=== PATIENT | female | born 1990 | race Two or more races ===

== ENCOUNTER 2019-01-05 11:37 | Inpatient (IN) | payer OTHER ==
[~2019-01-05] VITALS: Ht 160 cm; Wt 65.9 kg
[~2019-01-05 11:37] MED LIST: IBUP-1222 PO; OXYC-302 PO; PREN1TAB60 PO
[2019-01-05] MEDS ORDERED: D5%-LACTATED RINGERS 1,000 ML IV SCH (22:58)
[2019-01-05] MEDS ORDERED: OXYTOCIN 30U/ 0.9% NaCL 500ML 500 ML IV ONE (22:58)
[2019-01-05] MEDS ORDERED: FENTANYL PF 100 MCG/2ML IVPush PRN (23:00)
[2019-01-05] MEDS ORDERED: METOCLOPRAMIDE 5 MG/ML, 2ML IVPush PRN (23:00)
[2019-01-05] MEDS ORDERED: SODIUM CITRATE/CITRIC ACID 15 ML UDC PO PRN (23:00)
[2019-01-05] MEDS ORDERED: MISOPROSTOL 25 MCG TABLET VG PRN (23:00)
[2019-01-05] MEDS ORDERED: TERBUTALINE 1 MG/ML, 1ML IVPush PRN ×2 (23:00)
[2019-01-05] MEDS ORDERED: TERBUTALINE 1 MG/ML, 1ML SQ PRN (23:00)
[2019-01-05] MEDS ORDERED: ONDANSETRON 2MG/ML, 2ML IVPush PRN (23:00)
[2019-01-05] MEDS ORDERED: CALCIUM CARBONATE 500 MG TAB.CHEW PO PRN (23:00)
[2019-01-05] MEDS ORDERED: ALUMINUM/MAG/SIMETHICONE 30 ML UDC PO PRN (23:00)
[2019-01-05] MEDS ORDERED: FENTANYL PF 100 MCG/2ML IV PRN (23:00)
[2019-01-05] MEDS ORDERED: NEWBORN KIT ONE (23:09)
[2019-01-05 23:17] LABS: BASOPHILS # (AUTO) 0.03 x10^3/uL (0-0.1); BASOPHILS % (AUTO) 0 % (0-1); EOSINOPHILS % (AUTO) 0 % (1-7); LYMPHOCYTES # (AUTO) 2.84 x10^3/uL (1-3.4); LYMPHOCYTES % (AUTO) 17 % (22-44); MD NO; MEAN CORPUSCULAR HEMOGLOBIN 29.5 pg (27.0-34.8); MEAN CORPUSCULAR HGB CONC 33.4 g/dL (32.4-35.8); MEAN CORPUSCULAR VOLUME 88.4 fL (80-100); MEAN PLATELET VOLUME 9.4 fL (7.4-10.4); MONOCYTES # (AUTO) 1.04 x10^3/uL (0.2-0.8); MONOCYTES % (AUTO) 6 % (2-9); NEUTROPHILS # (AUTO) 12.39 x10^3/uL (1.8-6.8); NEUTROPHILS % (AUTO) 76 % (42-75); PLATELET COUNT 290 x10^3/uL (130-400); RED BLOOD COUNT 4.02 x10^6/uL (3.82-5.3); RED CELL DISTRIBUTION WIDTH 14.2 % (9.6-15.2)
[2019-01-05 23:37] VITALS: BP 98/56
[2019-01-06] MEDS: LACTATED RINGERS 1,000 ML IV SCH ×2 (00:22→03:07)
[2019-01-06] MEDS ORDERED: MISOPROSTOL 25 MCG TABLET ONE (01:56)
[2019-01-06] MEDS ORDERED: MISOPROSTOL 200 MCG TABLET ONE (11:07)
[2019-01-06] MEDS ORDERED: FENTANYL/BUPIV./NS/PF 250 ML EPIDCONT SCH ×2 (11:10→12:27)
[2019-01-06] MEDS ORDERED: LACTATED RINGERS 1,000 ML IV SCH ×2 (11:10→12:27)
[2019-01-06] MEDS ORDERED: LACTATED RINGERS 1,000 ML IVBOLUS PRN ×2 (11:30→12:30)
[2019-01-06] MEDS ORDERED: EPHEDRINE 50 MG/ML, 1ML IVPush PRN ×2 (11:30→12:30)
[2019-01-06] MEDS ORDERED: FENTANYL PF 500 MCG, BUPIVACAINE/PF 0.5%, 30ML 62.5 ML in SODIUM CHLORIDE 0.9% 177.5 ML EPIDCONT SCH (11:30)
[2019-01-06] MEDS ORDERED: OXYTOCIN 30U/ 0.9% NaCL 500ML 500 ML ONE ×2 (11:35→17:38)
[2019-01-06] MEDS ORDERED: BUPIVACAINE 0.25% ONE (12:05)
[2019-01-06] MEDS ORDERED: OXYTOCIN 30U/ 0.9% NaCL 500ML 500 ML IV PRN (12:27)
[2019-01-06] MEDS ORDERED: ONDANSETRON 2MG/ML, 2ML IVPush PRN (12:30)
[2019-01-06] MEDS ORDERED: DIPHENHYDRAMINE 50 MG/ML, 1ML IVPush PRN (12:30)
[2019-01-06] MEDS ORDERED: NALOXONE 0.4 MG/ML, 1ML IVPush PRN (12:30)
[2019-01-06] MEDS ORDERED: OXYcodone IR 5MG TABLET PO PRN (16:00)
[2019-01-06] MEDS ORDERED: OXYcodone/APAP 5/325MG TABLET PO PRN (16:00)
[2019-01-06] MEDS ORDERED: ACETAMINOPHEN 325 MG TABLET PO PRN (16:00)
[2019-01-06] MEDS ORDERED: MISOPROSTOL 200 MCG TABLET PR PRN (16:00)
[2019-01-06] MEDS ORDERED: DOCUSATE 100 MG CAPSULE PO PRN (16:00)
[2019-01-06] MEDS ORDERED: ONDANSETRON 2MG/ML, 2ML IV PRN (16:00)
[2019-01-06] MEDS ORDERED: IBUPROFEN 600 MG TABLET PO PRN (16:00)
[2019-01-06] MEDS: OXYTOCIN 30U/ 0.9% NaCL 500ML 500 ML IV SCH ×2 (17:09→17:35)
[2019-01-06 19:50] VITALS: BP 132/74
[2019-01-06 21:00] VITALS: BP 116/73
[2019-01-07] VITALS: BP 102/60
[2019-01-07 00:36] LABS: MEAN CORPUSCULAR HEMOGLOBIN 29.3 pg (27.0-34.8); MEAN CORPUSCULAR HGB CONC 33.2 g/dL (32.4-35.8); MEAN CORPUSCULAR VOLUME 88.1 fL (80-100); MEAN PLATELET VOLUME 9.3 fL (7.4-10.4); PLATELET COUNT 267 x10^3/uL (130-400); RED BLOOD COUNT 4.14 x10^6/uL (3.82-5.3); RED CELL DISTRIBUTION WIDTH 14.5 % (9.6-15.2)
[2019-01-07 00:56] LABS: MD YES
[2019-01-07 00:59] LABS: BAND#(MANUAL) 1.42 x10^3/uL; BANDS%(MANUAL) 6 % (0-7); BASOS#(MANUAL) 0.24 x10^3/uL (0-0.1); BASOS% (MANUAL) 1 % (0-1); LYMPH#(MANUAL) 3.56 x10^3/uL (1-3.4); LYMPHS% (MANUAL) 15 % (22-44); MONOS#(MANUAL) 0.95 x10^3/uL (0.3-2.7); MONOS% (MANUAL) 4 % (2-9); SEG#(MANUAL) 17.54 x10^3/uL (1.8-6.8); SEGS% (MANUAL) 74 % (42-75)
[2019-01-07 01:00] LABS: <PLATELET ESTIMATE> ADEQUATE; <PLT MORPHOLOGY> NORMAL PLT MORPH; <RBC MORPHOLOGY> NORMAL
[2019-01-07 04:00] VITALS: BP 98/63
[2019-01-07 07:30] VITALS: BP 105/66
[2019-01-07] MEDS ORDERED: PRENATAL VIT/IRON/FA 1 EACH TABLET PO SCH (09:00)
[2019-01-07] MEDS: OXYTOCIN 30U/ 0.9% NaCL 500ML 500 ML IV SCH (11:58)
[2019-01-07 12:23] VITALS: BP 119/75
[2019-01-07] MEDS ORDERED: OXYC-302 PO (13:13)
== END 2019-01-07 14:55 | disposition home or self-care (01) | DRG 807 ==
LOC: LDIP 22:55 → 2NW 01-06 19:45
PROVIDERS: ADMIT Obstetrics & Gynecology Gynecology; ATTEND Obstetrics & Gynecology Gynecology
PROC: 10E0XZZ Delivery of Products of Conception, External Approach (ICD-10-PCS; principal; 2019-01-06)
PROC: 10907ZC Drainage of Amniotic Fluid, Therapeutic from Products of Conception, Via Natural or Artificial Opening (ICD-10-PCS; 2019-01-06)
PROC: 3E0R3BZ Introduction of Anesthetic Agent into Spinal Canal, Percutaneous Approach (ICD-10-PCS; 2019-01-06)
PROC: 00HU33Z Insertion of Infusion Device into Spinal Canal, Percutaneous Approach (ICD-10-PCS; 2019-01-06)
DX: O69.1XX0 Labor and delivery complicated by cord around neck, with compression, not applicable or unspecified (principal); Z37.0 Single live birth; Z87.891 Personal history of nicotine dependence; Z3A.39 39 weeks gestation of pregnancy; Z83.3 Family history of diabetes mellitus
CPT/HCPCS: 36415; J7121; S0020; 85025; 86850; 86900; G0378; J3010; J2590; J7050; J7120